=== PATIENT | female | born 1980 | race Caucasian/White ===

== ENCOUNTER 2017-04-01 11:08 | Emergency (ER) | payer OTHER ==
[2017-04-01 12:35] VITALS: BP 120/74
== END 2017-04-01 12:30 | disposition home or self-care (01) ==
LOC: ED 11:08
DX: J06.9 Acute upper respiratory infection, unspecified (principal); E11.9 Type 2 diabetes mellitus without complications; Z79.84 Long term (current) use of oral hypoglycemic drugs

== ENCOUNTER 2017-04-28 09:16 | Emergency (ER) | payer OTHER ==
[2017-04-28 09:30] VITALS: BP 126/78
== END 2017-04-28 10:15 | disposition home or self-care (01) ==
LOC: ED 09:16
DX: T14.8XXA Other injury of unspecified body region, initial encounter (principal); L08.9 Local infection of the skin and subcutaneous tissue, unspecified; W57.XXXA Bitten or stung by nonvenomous insect and other nonvenomous arthropods, initial encounter; Y93.89 Activity, other specified; Y92.89 Other specified places as the place of occurrence of the external cause; Y99.8 Other external cause status
CPT/HCPCS: J7512

== ENCOUNTER 2017-10-02 00:08 | Emergency (ER) | payer OTHER ==
[~2017-10-02] VITALS: Ht 157.5 cm; Wt 70.3 kg
[2017-10-02 00:12] VITALS: Ht 157.5 cm; Wt 70.3 kg
[2017-10-02 03:10] VITALS: BP 115/77
== END 2017-10-02 03:10 | disposition home or self-care (01) ==
LOC: ED 00:08
DX: G43.909 Migraine, unspecified, not intractable, without status migrainosus (principal); N39.0 Urinary tract infection, site not specified; E11.9 Type 2 diabetes mellitus without complications; R11.0 Nausea; H53.149 Visual discomfort, unspecified
CPT/HCPCS: J0696; J0780; J1200; J3030; J7030

== ENCOUNTER 2017-12-30 20:19 | Emergency (ER) | payer OTHER ==
[~2017-12-30] VITALS: Ht 157.5 cm; Wt 72.6 kg
[2017-12-30 21:05] VITALS: BP 138/87
== END 2017-12-30 21:05 | disposition home or self-care (01) ==
LOC: ED 20:19
DX: K02.9 Dental caries, unspecified (principal)
CPT/HCPCS: J3010

== ENCOUNTER 2018-01-01 08:47 | Emergency (ER) | payer OTHER ==
[~2018-01-01] VITALS: Ht 157.5 cm; Wt 72.1 kg
[2018-01-01 08:58] VITALS: Ht 157.5 cm; Wt 72.1 kg
[2018-01-01 09:49] LABS: BASOPHIL % 0.4 % (0-2); PLATELET COUNT 225 x10^3mcL (130-400); RED CELL DISTRIBUTION WIDTH 13.3 % (11.5-14.5)
[2018-01-01 11:45] LABS: CALCIUM 7.9 mg/dL (8.5-10.1); CARBON DIOXIDE 23.2 mmol/L (21-32); CHLORIDE SERUM 98 mmol/L (98-107); CREATININE SERUM 0.6 mg/dL (0.6-1.0); GFR1 > 60 mL/min; GLUCOSE SERUM 324 mg/dL (74-106); POTASSIUM SERUM 3.4 mmol/L (3.5-5.1); SODIUM SERUM 135 mmol/L (136-145)
[2018-01-01 11:49] LABS: ALKALINE PHOSPHATASE 91 U/L (46-116); ALT/SGPT 15 U/L (14-59); AST/SGOT 13 U/L (15-37); BILIRUBIN TOTAL 0.8 mg/dL (0.20-1.00); TOTAL PROTEIN, SERUM 6.9 g/dL (6.4-8.2)
[2018-01-01 11:53] LABS: ALBUMIN 3.3 g/dL (3.4-5.0)
[2018-01-01 13:38] VITALS: BP 104/60
== END 2018-01-01 13:39 | disposition home or self-care (01) ==
LOC: ED 08:47
PROVIDERS: Emergency Medicine
DX: L03.211 Cellulitis of face (principal); E11.65 Type 2 diabetes mellitus with hyperglycemia
CPT/HCPCS: J3010; J7030; Q9967

== ENCOUNTER 2018-04-25 16:02 | Emergency (ER) | payer OTHER ==
[~2018-04-25] VITALS: Ht 157.5 cm; Wt 65.8 kg
[2018-04-25 16:17] VITALS: Ht 157.5 cm; Wt 65.8 kg
[2018-04-25 17:25] VITALS: BP 100/69
== END 2018-04-25 17:25 | disposition home or self-care (01) ==
LOC: ED 16:02
DX: L03.011 Cellulitis of right finger (principal); E11.9 Type 2 diabetes mellitus without complications; Z98.890 Other specified postprocedural states

== ENCOUNTER 2018-05-27 14:04 | Emergency (ER) | payer OTHER ==
[~2018-05-27] VITALS: Ht 154.9 cm; Wt 67.1 kg
[2018-05-27 14:09] VITALS: Ht 154.9 cm; Wt 67.1 kg
[2018-05-27 16:16] VITALS: BP 128/88
== END 2018-05-27 16:27 | disposition home or self-care (01) ==
LOC: ED 14:04
DX: J06.9 Acute upper respiratory infection, unspecified (principal); E11.9 Type 2 diabetes mellitus without complications; Z98.890 Other specified postprocedural states
CPT/HCPCS: J7512; J7613; Q0092

== ENCOUNTER 2019-03-04 22:34 | Emergency (ER) | payer OTHER ==
[~2019-03-04] VITALS: Ht 157.5 cm; Wt 67.6 kg
[2019-03-04 22:41] VITALS: Ht 157.5 cm; Wt 67.6 kg
[2019-03-05 02:20] VITALS: BP 120/77
== END 2019-03-05 02:20 | disposition home or self-care (01) ==
LOC: ED 22:34
DX: L02.31 Cutaneous abscess of buttock (principal); E11.9 Type 2 diabetes mellitus without complications; Z98.890 Other specified postprocedural states
CPT/HCPCS: J2001; J2270